=== PATIENT | female | born 1935 | race Caucasian/White ===

== ENCOUNTER 2016-08-10 10:27 | Day surgery (SDC) | payer OTHER, MEDICARE ==
[2016-08-06 16:06] LABS: BILIRUBIN,URINE NEGATIVE (NEGATIVE); CLARITY/URINE CLEAR (CLEAR); COLOR,URINE YELLOW (YELLOW); GLUCOSE,URINE NEGATIVE (NEGATIVE); KETONES,URINE NEGATIVE (NEGATIVE); LEUKOCYTE ESTERASE ,URINE TRACE (NEGATIVE); NITRITE, URINE NEGATIVE (NEGATIVE); PROTEIN URINE NEGATIVE (NEGATIVE); UROBILINOGEN,URINE 0.2 (0.2-1.0)
[2016-08-06 16:12] LABS: ANION GAP 10 (5-15); CALCIUM 9.7 mg/dL (8.4-11.0); CHLORIDE 103 mmol/L (98-107); CREATININE 0.77 mg/dL (0.55-1.30); GLUCOSE 103 mg/dL (70-99); POTASSIUM 3.8 mmol/L (3.5-5.1); SODIUM SERUM 140 mmol/L (136-145); UREA NITROGEN, BLOOD 16 mg/dL (8-21)
[2016-08-06 16:15] LABS: BLOOD, URINE TRACE (NEGATIVE)
[2016-08-06 16:16] LABS: BASOPHILS % (AUTO) 0.2 % (0.0-2.0); EOSINOPHILS # (AUTO) 0.1 K/uL (0.0-0.4); EOSINOPHILS % (AUTO) 1.3 % (0.0-4.0); HEMATOCRIT 42.8 % (36-48); HEMOGLOBIN 14.1 g/dL (12.0-16.0); LYMPHOCYTES # (AUTO) 2.4 K/uL (1.0-5.5); LYMPHOCYTES % (AUTO) 26.6 % (20.5-51.5); MEAN CORPUSCULAR HEMOGLOBIN 30 pg (27-31); MEAN CORPUSCULAR HGB CONC 33 % (32-36); MEAN CORPUSCULAR VOLUME 92 fL (79.0-98.0); MONOCYTES % (AUTO) 10.4 % (1.7-9.3); NEUTROPHILS # (AUTO) 5.7 K/uL (1.8-7.7); NEUTROPHILS % (AUTO) 61.5 % (40.0-70.0); PLATELET COUNT (AUTO) 327 K/uL (130-430); RED BLOOD CELL COUNT(AUTO) 4.66 MIL/uL (4.2-6.2); RED CELL DISTRIBUTION WIDTH 13.6 % (9.0-15.0); WHITE BLOOD COUNT (AUTO) 9.2 K/uL (4.8-10.8)
[2016-08-06 16:17] LABS: BACTERIA,URINE FEW /HPF (None Seen); MUCUS,URINE None Seen /LPF (None Seen); PROTHROMBIN TIME 10.7 SECS (9.5-12.5); RBC,URINE 0-3 /HPF (0-3)
[~2016-08-10] VITALS: Ht 167.6 cm; Wt 94.3 kg
[~2016-08-10 10:27] MED LIST: ASPI-1063 PO; LISI-600 PO; LISI1TAB13 PO; METO-308 PO; PRO40 PO; ROSU10TA PO; TOPXL100 PO; VIS25 PO
[2016-08-10] MEDS ORDERED: SEVOFLURANE 15 MIN GAS INH ONE (11:00)
[2016-08-10] MEDS ORDERED: BUPIVACAINE /EPINEPHRINE/PF 0.25% 30 ML VIAL INJ ONE (11:00)
[2016-08-10] MEDS ORDERED: KETOROLAC TROMETHAMINE 30 MG VIAL IVP ONE (11:00)
[2016-08-10] MEDS ORDERED: MIDAZOLAM HCL 5 MG/5 ML VIAL IVP ONE (11:00)
[2016-08-10] MEDS ORDERED: PROPOFOL 200MG/ 20ML VIAL (DIPRIVAN) IV ONE (11:00)
[2016-08-10] MEDS ORDERED: ONDANSETRON HCL 4 MG/2 ML VIAL IVP ONE (11:00)
[2016-08-10] MEDS ORDERED: METOPROLOL TARTRATE 5 MG/5 ML VIAL IVP ONE (11:00)
[2016-08-10] MEDS ORDERED: LR 1,000 ML IV.SOLN IV ONE (11:00)
[2016-08-10] MEDS ORDERED: fentaNYL CITRATE/PF 100 MCG/2 ML AMP IVP ONE (11:00)
[2016-08-10 11:11] VITALS: O2SAT 98
[2016-08-10] MEDS ORDERED: LR 1,000 ML IV SCH (12:03)
[2016-08-10] MEDS ORDERED: MEPERIDINE HCL/PF 25 MG/ML DISP.SYRIN IVP PRN ×2 (12:15)
[2016-08-10] MEDS ORDERED: ONDANSETRON HCL 4 MG/2 ML VIAL IVP PRN (12:15)
[2016-08-10] MEDS ORDERED: HYDROmorphone 2 MG/ML VIAL IVP PRN ×2 (12:15)
[2016-08-10] MEDS ORDERED: HYDROmorphone 1 MG INJ. 1 MG/ML AMPUL IVP PRN (12:15)
[2016-08-10 13:27] VITALS: BP 136/79; PULSE 63; RESP 16
== END 2016-08-10 14:35 | disposition home or self-care (01) ==
LOC: SDS 10:27 → SMU 10:28 → SDS 14:35
PROVIDERS: ATTEND Orthopaedic Surgery
DX: G56.03 Carpal tunnel syndrome, bilateral upper limbs (principal); I10 Essential (primary) hypertension; M54.5 Low back pain; M48.06 Spinal stenosis, lumbar region; Z90.49 Acquired absence of other specified parts of digestive tract
CPT/HCPCS: 36415; 64721; 71020; 80048; 81000; 85025; 85610; 85730; 93005; J1885; J2250; J2405; J2704; J3010; J3490 ×2; J7120

== ENCOUNTER 2017-01-23 20:21 | Inpatient (IN) | payer OTHER, MEDICARE ==
[~2017-01-23] VITALS: Ht 165.1 cm; Wt 98.0 kg
[2017-01-23 20:21] VITALS: BP_SYST 185
[~2017-01-23 20:21] MED LIST changes: -METO-308 PO
[2017-01-23] MEDS ORDERED: LIP20 PO (20:28)
[2017-01-23] MEDS ORDERED: HYDR50TA3 PO (20:29)
[2017-01-23] MEDS ORDERED: NACL 0.9% 1,000 ML IV ONE (20:45)
[2017-01-23 21:10] LABS: ANION GAP 8 (5-15); CALCIUM 9.2 mg/dL (8.4-11.0); CHLORIDE 97 mmol/L (98-107); CREATININE 0.86 mg/dL (0.55-1.30); GLUCOSE 117 mg/dL (70-99); POTASSIUM 3.8 mmol/L (3.5-5.1); SODIUM SERUM 132 mmol/L (136-145); UREA NITROGEN, BLOOD 13 mg/dL (8-21)
[2017-01-23 21:11] LABS: BASOPHILS % (AUTO) 0.3 % (0.0-2.0); EOSINOPHILS # (AUTO) 0.2 K/uL (0.0-0.4); EOSINOPHILS % (AUTO) 2.3 % (0.0-4.0); HEMATOCRIT 45.7 % (36-48); HEMOGLOBIN 15.1 g/dL (12.0-16.0); LYMPHOCYTES # (AUTO) 3.1 K/uL (1.0-5.5); MEAN CORPUSCULAR HEMOGLOBIN 30 pg (27-31); MEAN CORPUSCULAR HGB CONC 33 % (32-36); MEAN CORPUSCULAR VOLUME 90 fL (79.0-98.0); MONOCYTES # (AUTO) 0.9 K/uL (0.0-1.0); MONOCYTES % (AUTO) 10.1 % (1.7-9.3); NEUTROPHILS # (AUTO) 4.5 K/uL (1.8-7.7); NEUTROPHILS % (AUTO) 51.3 % (40.0-70.0); PLATELET COUNT (AUTO) 304 K/uL (130-430); RED BLOOD CELL COUNT(AUTO) 5.09 MIL/uL (4.2-6.2); WHITE BLOOD COUNT (AUTO) 8.7 K/uL (4.8-10.8)
[2017-01-23 21:14] LABS: ALANINE AMINOTRANSFERASE 32 U/L (12-78); ALBUMIN 3.7 g/dL (3.4-4.8); ASPARTATE AMINOTRANSFERASE 24 U/L (10-37); PROTHROMBIN TIME 10.4 SECS (9.5-12.5); SALICYLATE 1 mg/dL (3-30); TOTAL BILIRUBIN 0.6 mg/dL (0.0-1.0)
[2017-01-23 21:15] LABS: BILIRUBIN,URINE NEGATIVE (NEGATIVE); BLOOD, URINE 1+ (NEGATIVE); CLARITY/URINE CLEAR (CLEAR); COLOR,URINE YELLOW (YELLOW); GLUCOSE,URINE NEGATIVE (NEGATIVE); KETONES,URINE NEGATIVE (NEGATIVE); LEUKOCYTE ESTERASE ,URINE 2+ (NEGATIVE); NITRITE, URINE NEGATIVE (NEGATIVE); PROTEIN URINE TRACE (NEGATIVE); UROBILINOGEN,URINE 0.2 (0.2-1.0)
[2017-01-23 21:16] LABS: ALCOHOL, BLOOD < 3 mg/dL (<10)
[2017-01-23 21:20] LABS: ACETAMINOPHEN < 1 ug/mL (1-30)
[2017-01-23 21:25] LABS: BACTERIA,URINE FEW /HPF (None Seen)
[2017-01-23 21:28] LABS: BARBITURATE, URINE NEGATIVE (NEG <=200); BENZODIAZEPINE, URINE NEGATIVE (NEG <=150); CANNABINOID, URINE NEGATIVE (NEG <=50); COCAINE, URINE NEGATIVE (NEG <=150); METHAMPHETAMINES SCREEN,URINE NEGATIVE (NEG <=500); OPIATE, URINE NEGATIVE (NEG <=100); PHENCYCLIDINE SCREEN,URINE NEGATIVE (NEG <=25); UR TRICYCLIC ANTIDEPRESSANTS NEGATIVE (NEG <=300); URINE AMPHETAMINE NEGATIVE (NEG <=500); URINE METHADONE NEGATIVE (NEG <=200); URINE OXYCODONE SCREEN NEGATIVE (NEG <=100); URINE PROPOXYPHENE SCREEN NEGATIVE (NEG <=300)
[2017-01-23] MEDS ORDERED: LEVOFLOXACIN 500 MG TABLET PO ONE (22:45)
[2017-01-23 23:25] VITALS: BP_SYST 182
[2017-01-24] VITALS (7 sets, daily range): BP systolic 125–187
[2017-01-24] MEDS: cloNIDine HCL 0.1 MG TABLET PO PRN ×2 (01:59→21:14)
[2017-01-24] MEDS: LEVOFLOXACIN 500 MG/D5W 100 ML IV SCH (21:08)
[2017-01-24] MEDS ORDERED: ATORVASTATIN 20 MG TABLET PO PRN (21:45)
[2017-01-24] MEDS ORDERED: LISINOPRIL 20 MG TABLET PO ONE (22:00)
[2017-01-24] MEDS ORDERED: ATORVASTATIN 20 MG TABLET PO ONE (22:30)
[2017-01-24] MEDS: HYDROCHLOROTHIAZIDE 25 MG TABLET (HCTZ) PO ONE ×2 (22:31→22:42)
[2017-01-25] VITALS (7 sets, daily range): BP systolic 132–173
[2017-01-25] MEDS: PANTOPRAZOLE SODIUM 40 MG TAB PO SCH (08:15)
[2017-01-25] MEDS: ASPIRIN 81 MG TABLET(ECOTRIN) PO SCH (08:16)
[2017-01-25] MEDS: LISINOPRIL 20 MG TABLET PO SCH ×2 (08:16→20:57)
[2017-01-25] MEDS: HYDROCHLOROTHIAZIDE 25 MG TABLET (HCTZ) PO SCH (08:16)
[2017-01-25] MEDS: METOPROLOL SUCCINATE 50 MG TAB.SR.24H (TOPROL XL) PO SCH (08:17)
[2017-01-25] MEDS ORDERED: ROSUVASTATIN CALCIUM 5 MG/TAB (CRESTOR) PO SCH (09:00)
[2017-01-25] MEDS ORDERED: HCTZ PO SCH (09:00)
[2017-01-25] MEDS ORDERED: LISINOPRIL PO SCH (09:00)
[2017-01-25 10:06] LABS: THYROID STIMULATING HORMONE 2.52 uIu/mL (0.34-4.82)
[2017-01-25] MEDS: cloNIDine HCL 0.1 MG TABLET PO PRN (12:39)
[2017-01-25] MEDS: LEVOFLOXACIN 500 MG/D5W 100 ML IV SCH (20:36)
[2017-01-25] MEDS ORDERED: ATORVASTATIN 20 MG TABLET PO SCH (21:00)
[2017-01-26 05:44] VITALS: BP_SYST 142
[2017-01-26 08:11] VITALS: BP_SYST 168
[2017-01-26] MEDS: ASPIRIN 81 MG TABLET(ECOTRIN) PO SCH (08:44)
[2017-01-26] MEDS: PANTOPRAZOLE SODIUM 40 MG TAB PO SCH (08:44)
[2017-01-26] MEDS: METOPROLOL SUCCINATE 50 MG TAB.SR.24H (TOPROL XL) PO SCH (08:44)
[2017-01-26] MEDS: LISINOPRIL 20 MG TABLET PO SCH (08:45)
[2017-01-26] MEDS: HYDROCHLOROTHIAZIDE 25 MG TABLET (HCTZ) PO SCH (08:46)
[2017-01-26 10:09] VITALS: BP_SYST 139
== END 2017-01-26 10:30 | disposition home or self-care (01) | DRG 690 ==
LOC: SED 20:21 → STU 22:40 → OBSVTOIN 01-24 12:02 → SMU 01-25 17:12
PROVIDERS: ADMIT Family Medicine; ATTEND Family Medicine
DX: N39.0 Urinary tract infection, site not specified (principal); G45.9 Transient cerebral ischemic attack, unspecified; M54.12 Radiculopathy, cervical region; I10 Essential (primary) hypertension; E78.5 Hyperlipidemia, unspecified; G89.29 Other chronic pain; M48.02 Spinal stenosis, cervical region; E78.00 Pure hypercholesterolemia, unspecified; Z88.0 Allergy status to penicillin; Z88.2 Allergy status to sulfonamides; Z91.018 Allergy to other foods; Z79.899 Other long term (current) drug therapy
CPT/HCPCS: 36415; 70450-TC; 71010; 80053; 80061; 80307; 81000-TC; 83036; 84443-TC; 84484; 85025; 85610-TC; 85730-TC; 87081; 87086; 87186-TC; 93005; 93306; 96360; 96361; 99285; G0378; G0480; G0481; G0482; J1956; J7030; J7040

== ENCOUNTER 2018-04-15 17:30 | Inpatient (IN) | payer OTHER, MEDICARE ==
[2018-04-15] VITALS (7 sets, daily range): BP systolic 131–205
[~2018-04-15] VITALS: Ht 165.1 cm; Wt 108.4 kg
[~2018-04-15 17:30] MED LIST changes: -ASPI-1063 PO; +ASPI-1154 PO; +HYDR50TA3 PO; +LEVO500T20 PO; +LIP20 PO; -LISI1TAB13 PO; +METO-442 PO; +METR500T PO; -PRO40 PO; -ROSU10TA PO
[2018-04-15] MEDS ORDERED: NACL 0.9% 1,000 ML IV ONE (17:32)
--- NOTE | 2018-04-15 17:39 | NUR ---
Pt placed to ER bed 01, to gown, to histology assistant. Pt c/o SOB, coughing, "slurring my words," dry heaving, weakness x 2 days. Pt AAOx3, coherent speech, speaks in full sentences, no slurring of words noted. Pt B/P 205/99, SPO2 90% RA. Mild SOB noted, diminished to bases. Dr. Alva made aware. Pt states that she took her B/P medications late.
--- NOTE | 2018-04-15 17:40 | NUR ---
Pt placed on O2 at 2 LPM/NC, SPO2 increases to 96%.
[2018-04-15] MEDS ORDERED: methylPREDNISolone SOD SUCC/PF 62.5 MG/ML VIAL IVP ONE (17:45)
[2018-04-15] MEDS ORDERED: IPRATROPIUM BROM 0.5 MG/2.5 ML VIAL.NEB (ATROVENT) IH ONE (17:45)
[2018-04-15] MEDS ORDERED: ALBUTEROL SULFATE 0.083% 2.5 MG/3 ML VIAL.NEB IH ONE (17:45)
[2018-04-15] MEDS ORDERED: ASPIRIN 81 MG TAB.CHEW PO ONE ×2 (17:45→18:45)
--- NOTE | 2018-04-15 17:45 | NUR ---
Dr. Alva at bedside.
--- NOTE | 2018-04-15 17:47 | NUR ---
RT at bedside.
--- NOTE | 2018-04-15 17:55 | NUR ---
# 20 gauge angiocath placed to RAC. Use of asceptic technique. Opsite placed over site. Blood return noted. Blood for lab drawn from site. Flushed with 10 cc of normal saline. No evidence of infiltration noted. Patient tolerated well.
--- NOTE | 2018-04-15 18:13 | NUR ---
X-ray at bedside.
--- NOTE | 2018-04-15 18:14 | NUR ---
Pt to CT via stretcher.
[2018-04-15] MEDS ORDERED: cloNIDine HCL 0.1 MG TABLET PO ONE (18:15)
--- NOTE | 2018-04-15 18:20 | NUR ---
Pt returns from CT. Improvement in work of breathing noted, denies c/o pain, no needs verbalized at this time.
[2018-04-15 18:23] LABS: BASOPHILS # (AUTO) 0.1 K/uL (0.0-0.2); BASOPHILS % (AUTO) 0.4 % (0.0-2.0); HEMATOCRIT 39.4 % (36-48); HEMOGLOBIN 13.1 g/dL (12.0-16.0); LYMPHOCYTES # (AUTO) 1.3 K/uL (1.0-5.5); LYMPHOCYTES % (AUTO) 9.4 % (20.5-51.5); MEAN CORPUSCULAR HEMOGLOBIN 31 pg (27-31); MEAN CORPUSCULAR HGB CONC 33 % (32-36); MEAN CORPUSCULAR VOLUME 93 fL (79.0-98.0); MONOCYTES # (AUTO) 1.2 K/uL (0.0-1.0); MONOCYTES % (AUTO) 9.1 % (1.7-9.3); NEUTROPHILS # (AUTO) 10.7 K/uL (1.8-7.7); NEUTROPHILS % (AUTO) 81.1 % (40.0-70.0); PLATELET COUNT (AUTO) 253 K/uL (130-430); RED BLOOD CELL COUNT(AUTO) 4.25 MIL/uL (4.2-6.2); RED CELL DISTRIBUTION WIDTH 12.1 % (9.0-15.0); WHITE BLOOD COUNT (AUTO) 13.3 K/uL (4.8-10.8)
[2018-04-15 18:27] LABS: ANION GAP 12 (5-15); CALCIUM 9.3 mg/dL (8.4-11.0); CHLORIDE 96 mmol/L (98-107); CREATININE 0.92 mg/dL (0.55-1.30); GLUCOSE 139 mg/dL (70-99); POTASSIUM 3.6 mmol/L (3.5-5.1); SODIUM SERUM 132 mmol/L (136-145); UREA NITROGEN, BLOOD 12 mg/dL (8-21)
[2018-04-15 18:29] LABS: INR 1.1 (0.8-1.2); PROTHROMBIN TIME 11.4 SECS (9.5-12.5)
--- NOTE | 2018-04-15 18:30 | NUR ---
Attempted to use bedpan, unable to urinate at this time.
[2018-04-15 18:31] LABS: ALANINE AMINOTRANSFERASE 29 U/L (12-78); ALBUMIN 3.2 g/dL (3.4-4.8); ALCOHOL, BLOOD < 3 mg/dL (<10); AMYLASE 23 U/L (0-100); ASPARTATE AMINOTRANSFERASE 25 U/L (10-37); LIPASE 84 U/L (73-393); TOTAL BILIRUBIN 1.9 mg/dL (0.0-1.0)
[2018-04-15] MEDS ORDERED: CLOPIDOGREL BISULFATE 75 MG TABLET PO ONE (18:45)
--- NOTE | 2018-04-15 18:46 | NUR ---
Unable to urinate in bedpan. Patient assisted to bedside commode instead.
--- NOTE | 2018-04-15 18:59 | NUR ---
Lab at bedside for repeat blood draw.
--- NOTE | 2018-04-15 19:00 | NUR ---
Medication reconciliation completed with information provided by pt. Any prior medication reconciliation on file was reviewed and corrected.
[2018-04-15 19:05] LABS: CKMB RELATIVE INDEX 0.4 (0.0-2.9); CREATINE KINASE MB 1.7 ng/mL (0-3.6)
--- NOTE | 2018-04-15 19:06 | NUR ---
Pt report given to WOODY Martinez.
[2018-04-15 19:09] LABS: BILIRUBIN,URINE NEGATIVE (NEGATIVE); BLOOD, URINE 2+ (NEGATIVE); CLARITY/URINE CLEAR (CLEAR); COLOR,URINE YELLOW (YELLOW); GLUCOSE,URINE NEGATIVE (NEGATIVE); KETONES,URINE 1+ (NEGATIVE); LEUKOCYTE ESTERASE ,URINE TRACE (NEGATIVE); NITRITE, URINE NEGATIVE (NEGATIVE); PROTEIN URINE 2+ (NEGATIVE); UROBILINOGEN,URINE 0.2 (0.2-1.0)
[2018-04-15 19:12] LABS: BACTERIA,URINE MODERATE /HPF (None Seen)
[2018-04-15 19:19] LABS: BARBITURATE, URINE NEGATIVE (NEG <=200); BENZODIAZEPINE, URINE NEGATIVE (NEG <=150); CANNABINOID, URINE NEGATIVE (NEG <=50); COCAINE, URINE NEGATIVE (NEG <=150); METHAMPHETAMINES SCREEN,URINE NEGATIVE (NEG <=500); OPIATE, URINE NEGATIVE (NEG <=100); PHENCYCLIDINE SCREEN,URINE NEGATIVE (NEG <=25); UR TRICYCLIC ANTIDEPRESSANTS NEGATIVE (NEG <=300); URINE AMPHETAMINE NEGATIVE (NEG <=500); URINE METHADONE NEGATIVE (NEG <=200); URINE OXYCODONE SCREEN NEGATIVE (NEG <=100); URINE PROPOXYPHENE SCREEN NEGATIVE (NEG <=300)
[2018-04-15] MEDS ORDERED: ALBUTEROL SULFATE 0.083% 2.5 MG/3 ML VIAL.NEB INH PRN (19:30)
[2018-04-15] MEDS ORDERED: FUROSEMIDE 40 MG/4 ML VIAL IVP ONE (19:30)
[2018-04-15] MEDS ORDERED: ONDANSETRON HCL 4 MG/2 ML VIAL ONE (19:55)
--- NOTE | 2018-04-15 19:55 | NUR ---
Patient will be admitted to care of Dr. Doll. Admitted to ICU unit. Will go to room ICU 4. Belongings list completed. Summary report printed. Report will be given at bedside.
[2018-04-15] MEDS ORDERED: ONDANSETRON HCL 4 MG/2 ML VIAL IVP ONE (20:00)
--- NOTE | 2018-04-15 20:17 | NUR ---
Transfer to ICU via ACLS protocol. Licensed nurse present. IV present no signs or symptoms of infiltration. Report given to WOODY Mallory.
--- NOTE | 2018-04-15 20:17 | NUR ---
RECEIVED IN ICU Patient arrived in ICU at this time via merlene, accompanied by CERTIFIED SURGICAL TECHNICIAN Michelle and Norman. Report received from Michelle. Patient awake, alert and oriented and able to verbalize needs. Patient on 2L O2 via NC with 96% O2 saturation. Patient BP at 163/64, patient just recently been given clonidine in ER. No sign of acute distress noted at this time. IV site on Right AC 20g, patent and no sign of infiltration observed. Patent educated on the use of call light. Call light placed within reach. Will continue to monitor.
--- NOTE | 2018-04-15 20:20 | NUR ---
Note yesika in EDM - 04/15/18 at 2109 by [email or web address] Patient will be admitted to care of Dr. Doll. Admitted to ICU unit. Will go to room ICU 4. Belongings list completed. Summary report printed. Report will be given at bedside.
--- NOTE | 2018-04-15 20:40 | NUR ---
Note temoone in EDM - 04/15/18 at 2105 by [email or web address] Transfer to ICU via ACLS protocol. Licensed nurse present. IV present no signs or symptoms of infiltration. Report given to WOODY Mallory.
--- NOTE | 2018-04-15 20:45 | NUR ---
cardiology consultation called for , spoke with milling machine operator gear 1 at exchange.
--- NOTE | 2018-04-15 20:47 | NUR ---
CALLED BACK AND INFORMED HIM OF PTS STATUS, HE SAID HE WILL SEE THE PT LATER.
[2018-04-15] MEDS: NACL 0.9% 1,000 ML IV SCH (20:56)
--- NOTE | 2018-04-15 22:30 | NUR ---
CONSULT FOR CALLED, SPOKE WITH [employer].
--- NOTE | 2018-04-15 22:35 | NUR ---
Paged Dr. Doll at this time for orders. Awaiting call back.
--- NOTE | 2018-04-15 23:00 | NUR ---
Dr. Doll called back. Received orders. Home meds continued as ordered.
[2018-04-16] VITALS (25 sets, daily range): BP systolic 107–180
--- NOTE | 2018-04-16 01:16 | NUR ---
RN ROUNDS ASSISTED PT TO BEDPAN AT THIS TIME. PT TOLERATED WELL. LINENS CHANGED THIS TIME. NO SIGNS OF ACUTE DISTRESS OR DISCOMFORT NOTED. WILL CONTINUE TO MONITOR.
--- NOTE | 2018-04-16 03:36 | NUR ---
RN ROUNDS PT IN BED W/ EYES OPEN WATCHING TV. NO SIGNS OF ACUTE DISTRESS OR DISCOMFORT NOTED. PT REPOSITIONED HIGHER INTO BED AT THIS TIME. PT TOLERATED WELL. WILL CONTINUE TO MONITOR.
--- NOTE | 2018-04-16 05:15 | NUR ---
RN ROUNDS PT IN BED W/ EYES CLOSED RESTING COMFORTABLY. NO SIGNS OF ACUTE DISTRESS OR DISCOMFORT NOTED. BED LOCKED AND IN LOWEST POSITION, CALL LIGHT W/IN REACH, WILL CONTINUE TO MONITOR.
--- NOTE | 2018-04-16 07:21 | NUR ---
ENDORSEMENT PT CARE ENDORSED TO DENISE MCKAY. REPORT GIVEN USING SBAR FORMAT. PT IN BED A&O X4 . NO SIGNS OF ACUTE DISTRESS OR DISCOMFORT NOTED.
--- NOTE | 2018-04-16 07:23 | NUR ---
AM ROUNDS: Report received from NOC shift RN. Patient is resting in bed. No signs or symptoms of distress noted.
[2018-04-16] MEDS: cefTRIAXone 1 GM IVPB PREMIX 50 ML IV SCH (08:20)
[2018-04-16] MEDS: FLUTICASONE/VILANTEROL 1 EACH BLST.W.DEV INH SCH (08:20)
[2018-04-16] MEDS: FUROSEMIDE 40 MG/4 ML VIAL IVP SCH (08:22)
[2018-04-16] MEDS: cloNIDine HCL 0.1 MG TABLET PO SCH ×2 (08:25→20:51)
[2018-04-16] MEDS: LOSARTAN POTASSIUM 50 MG TABLET (COZAAR) PO SCH ×2 (08:26→20:50)
[2018-04-16] MEDS: ATORVASTATIN 20 MG TABLET PO SCH (08:26)
[2018-04-16] MEDS: HYDROCHLOROTHIAZIDE 25 MG TABLET (HCTZ) PO SCH (08:27)
[2018-04-16] MEDS: ASPIRIN 81 MG TABLET(ECOTRIN) PO SCH (08:28)
[2018-04-16] MEDS: METOPROLOL SUCCINATE 50 MG TAB.SR.24H (TOPROL XL) PO SCH (08:29)
--- NOTE | 2018-04-16 09:13 | NUR ---
MD ROUNDS: Dr. Doll in to see patient.
--- NOTE | 2018-04-16 09:13 | NUR ---
FOOD COUNTER WORKER ROUNDS: FOOD COUNTER WORKER Addison in to see patient for Dr. Keith.
--- NOTE | 2018-04-16 09:28 | NUR ---
MD ROUNDS: Dr. Ruff in to see patient.
[2018-04-16 10:12] LABS: BASOPHILS # (AUTO) 0.1 K/uL (0.0-0.2); BASOPHILS % (AUTO) 0.9 % (0.0-2.0); HEMATOCRIT 37.9 % (36-48); HEMOGLOBIN 12.8 g/dL (12.0-16.0); LYMPHOCYTES # (AUTO) 0.8 K/uL (1.0-5.5); LYMPHOCYTES % (AUTO) 7.4 % (20.5-51.5); MEAN CORPUSCULAR HEMOGLOBIN 31 pg (27-31); MEAN CORPUSCULAR HGB CONC 34 % (32-36); MEAN CORPUSCULAR VOLUME 92 fL (79.0-98.0); MONOCYTES # (AUTO) 0.6 K/uL (0.0-1.0); MONOCYTES % (AUTO) 5.4 % (1.7-9.3); NEUTROPHILS # (AUTO) 9.2 K/uL (1.8-7.7); NEUTROPHILS % (AUTO) 86.3 % (40.0-70.0); PLATELET COUNT (AUTO) 245 K/uL (130-430); RED BLOOD CELL COUNT(AUTO) 4.11 MIL/uL (4.2-6.2); RED CELL DISTRIBUTION WIDTH 12.5 % (9.0-15.0); WHITE BLOOD COUNT (AUTO) 10.7 K/uL (4.8-10.8)
--- NOTE | 2018-04-16 11:52 | NUR ---
ROUNDS: Dr. Keith in to see patient. Addendum: 04/16/18 at 1225 by Uziel Maya RN made aware of elevated BP after medication. He stated he would put in orders.
--- NOTE | 2018-04-16 13:30 | NUR ---
Neuro consult Neuro consult called to Dr. Ambriz's exchange.
[2018-04-16] MEDS: hydrALAZINE HCL 25 MG TABLET PO SCH ×2 (15:13→22:33)
[2018-04-16] MEDS: NACL 0.9% 1,000 ML IV SCH (15:39)
--- NOTE | 2018-04-16 16:35 | NUR ---
Code status update Dr. Doll called and code status discussed with him. He would like to talk to the pt, and daughters when he rounds tomorrow.
--- NOTE | 2018-04-16 19:30 | NUR ---
PM Assessment Pt in bed. Alert and orientated x4, able to verbalize needs. Pt Resp clear and unlabored. On NC @2L. SPO2 above 96%. SB/ SR noted on monitor. Skin intact. Pt able to turn self. Bedpan used when needed. Bed locked in lowest position, call light in reach, safety precautions in place. Will continue to monitor.
[2018-04-16] MEDS: ENOXAPARIN SODIUM 40 MG/0.4 ML SYRINGE SUBCUT SCH (20:52)
[2018-04-17] VITALS (18 sets, daily range): BP systolic 115–180
--- NOTE | 2018-04-17 03:30 | NUR ---
Pt Round Pt in bed asleep. No signs or symptoms of discomfort or distress noted. SPO2 maintained above 96%Call light remains in reach. Will continue to monitor.
[2018-04-17] MEDS: hydrALAZINE HCL 25 MG TABLET PO SCH ×3 (06:09→21:05)
--- NOTE | 2018-04-17 07:15 | NUR ---
Endorsement Report given to oncoming nurse at bedside via SBAR approach.
--- NOTE | 2018-04-17 07:20 | NUR ---
AM RN ROUNDS PT IS AA/O X 4, SPEAKS KAZAKH AND IS COOPERATIVE. O2 THERAPY AT 2L VIA NASAL CANULA, NO SOB, LUNG SOUNDS CLEAR BILATERALLY BUT SLIGHTLY DIMINISHED IN LOWER LOBES. RAC 20G ANGIOCATH PATENT, DRESSING DRY AND INTACT. BED IN LOWEST POSITION AND CALL LIGHT IS WITHIN REACH.
--- NOTE | 2018-04-17 07:58 | NUR ---
Nutrition Update Lito Scale 17 noted. Pt admitted for Acute Coronary Syndrome, Pneumonia, Acute CHF Diet: regular diet BMI: 39.8 kg/m2 RD to follow per nutrition care standards.
[2018-04-17] MEDS: FUROSEMIDE 40 MG/4 ML VIAL IVP SCH ×2 (09:00→09:01)
[2018-04-17] MEDS: LOSARTAN POTASSIUM 50 MG TABLET (COZAAR) PO SCH ×2 (09:02→21:04)
[2018-04-17] MEDS: METOPROLOL SUCCINATE 50 MG TAB.SR.24H (TOPROL XL) PO SCH (09:02)
[2018-04-17] MEDS: ATORVASTATIN 20 MG TABLET PO SCH (09:03)
[2018-04-17] MEDS: ASPIRIN 81 MG TABLET(ECOTRIN) PO SCH (09:03)
[2018-04-17] MEDS: cloNIDine HCL 0.1 MG TABLET PO SCH ×2 (09:03→21:04)
[2018-04-17] MEDS: HYDROCHLOROTHIAZIDE 25 MG TABLET (HCTZ) PO SCH (09:04)
[2018-04-17] MEDS: cefTRIAXone 1 GM IVPB PREMIX 50 ML IV SCH (09:04)
[2018-04-17] MEDS: FLUTICASONE/VILANTEROL 1 EACH BLST.W.DEV INH SCH (09:05)
[2018-04-17 10:22] LABS: ANION GAP 6 (5-15); CHLORIDE 102 mmol/L (98-107); CREATININE 1.04 mg/dL (0.55-1.30); GLUCOSE 124 mg/dL (70-99); POTASSIUM 3.4 mmol/L (3.5-5.1); SODIUM SERUM 133 mmol/L (136-145); UREA NITROGEN, BLOOD 25 mg/dL (8-21)
[2018-04-17 10:38] LABS: ALANINE AMINOTRANSFERASE 27 U/L (12-78); ALBUMIN 2.6 g/dL (3.4-4.8); ASPARTATE AMINOTRANSFERASE 23 U/L (10-37); TOTAL BILIRUBIN 0.6 mg/dL (0.0-1.0)
[2018-04-17] MEDS ORDERED: POTASSIUM CHLORIDE 20 MEQ TAB.PRT.SR PO ONE (11:30)
[2018-04-17] MEDS ORDERED: FUROSEMIDE 40 MG/4 ML VIAL IVP ONE (11:30)
--- NOTE | 2018-04-17 11:31 | NUR ---
Downgrade to Telemetry per Dr. Oropeza Continuing care in ICU until a Tele bed becomes available.
[2018-04-17] MEDS: KCL 20 mEq in NS 1000 mL 1,000 ML IV SCH (13:54)
[2018-04-17] MEDS: IPRATROPIUM BROM 0.5 MG/2.5 ML VIAL.NEB (ATROVENT) INH SCH ×2 (15:08→21:00)
[2018-04-17] MEDS: ALBUTEROL SULFATE 0.083% 2.5 MG/3 ML VIAL.NEB INH SCH ×2 (15:08→21:00)
--- NOTE | 2018-04-17 16:00 | NUR ---
RN NOTE PT SITTING UP IN BED TALKING WITH FRIENDS AT BEDSIDE, NO COMPLAINT OF PAIN OR SOB. BED IN LOWEST POSITION AND CALL LIGHT WITHIN REACH.
--- NOTE | 2018-04-17 18:00 | NUR ---
ENDORSEMENT REPORT ENDORSED TO WARP HANDWOODY LUI PT TRANSPORTED TO BED 114-B ON RIM TURNING MACHINE OPERATOR AND O2 THERAPY VIA ACLS GUIDELINES
--- NOTE | 2018-04-17 18:10 | NUR ---
Initial Note patient oriented to room, connected to O2, no SOB at this time, breathing unlabored, symmetrical chest expansion, she was assisted with meal tray, family at bedside, no complaints of pain, safety precautions remain in place, educated patient on use of call light for assistance, verbalized understanding, call light and bedside table left within reach, will continue to monitor patient
--- NOTE | 2018-04-17 18:55 | NUR ---
Closing Note patient resting in bed, awake and alert, HOB elevated, no complaints of pain, family still at bedside, IV fluids infusing, site patent, safety precautions remain in place, call light and bedside table left within reach, will endorse to night shift supervisor nurse
--- NOTE | 2018-04-17 19:25 | NUR ---
OPENING NOTE Received report from Flor. Patient resting in bed awake, alert, oriented x3. Breathing unlabored and even on 2L oxygen via NC. No signs of distress, no needs at this time. Fall and safety precautions in place. Bed in lowest position, brake on, alarm on, call light within reach. IVF infusing as ordered. Family at the bedside. Will continue to monitor.
[2018-04-17] MEDS: POTASSIUM CHLORIDE 8 MEQ TABLET.SA PO SCH (21:05)
[2018-04-17] MEDS: ENOXAPARIN SODIUM 40 MG/0.4 ML SYRINGE SUBCUT SCH (21:06)
--- NOTE | 2018-04-17 23:25 | NUR ---
Patient resting in bed with eyes closed. Breathing unlabored and even on 2L oxygen via NC. No signs of distress, no needs at this time. Fall and safety precautions in place. Bed in lowest position, brake on, alarm on, call light within reach. IVF infusing as ordered. Will continue to monitor.
[2018-04-18] VITALS (7 sets, daily range): BP systolic 140–167
[2018-04-18] MEDS: KCL 20 mEq in NS 1000 mL 1,000 ML IV SCH ×2 (01:48→07:30)
--- NOTE | 2018-04-18 01:49 | NUR ---
New IVF hung
--- NOTE | 2018-04-18 05:45 | NUR ---
ASSISTED PT TO THE BSC. BM X1
[2018-04-18] MEDS: hydrALAZINE HCL 25 MG TABLET PO SCH ×3 (06:01→21:22)
[2018-04-18 07:19] LABS: BASOPHILS % (AUTO) 0.3 % (0.0-2.0); EOSINOPHILS # (AUTO) 0.1 K/uL (0.0-0.4); EOSINOPHILS % (AUTO) 0.8 % (0.0-4.0); HEMATOCRIT 36.9 % (36-48); HEMOGLOBIN 11.8 g/dL (12.0-16.0); LYMPHOCYTES # (AUTO) 1.5 K/uL (1.0-5.5); LYMPHOCYTES % (AUTO) 15.1 % (20.5-51.5); MEAN CORPUSCULAR HEMOGLOBIN 30 pg (27-31); MEAN CORPUSCULAR HGB CONC 32 % (32-36); MEAN CORPUSCULAR VOLUME 94 fL (79.0-98.0); MONOCYTES # (AUTO) 1.5 K/uL (0.0-1.0); MONOCYTES % (AUTO) 14.9 % (1.7-9.3); NEUTROPHILS # (AUTO) 6.9 K/uL (1.8-7.7); NEUTROPHILS % (AUTO) 68.9 % (40.0-70.0); PLATELET COUNT (AUTO) 303 K/uL (130-430); RED BLOOD CELL COUNT(AUTO) 3.93 MIL/uL (4.2-6.2); RED CELL DISTRIBUTION WIDTH 12.8 % (9.0-15.0)
--- NOTE | 2018-04-18 07:20 | NUR ---
Opening Note Patient resting in bed, eyes closed, HOB elevated, no signs of distress, symmetrical chest expansion, IV site remains in tact, safety precautions in place, call light and bedside table left within reach, will continue to monitor patient
--- NOTE | 2018-04-18 07:30 | NUR ---
CLOSING NOTE Gave report to Flor. Patient resting in bed awake, alert, oriented x3. Breathing unlabored and even on 2L oxygen via NC. No signs of distress, no needs at this time. Fall and safety precautions in place. Bed in lowest position, brake on, alarm on, call light within reach. IVF infusing as ordered. Endorsed care to day shift nurse.
[2018-04-18 07:35] LABS: ANION GAP 9 (5-15); CALCIUM 8.8 mg/dL (8.4-11.0); CHLORIDE 102 mmol/L (98-107); CREATININE 0.93 mg/dL (0.55-1.30); GLUCOSE 94 mg/dL (70-99); POTASSIUM 3.5 mmol/L (3.5-5.1); SODIUM SERUM 137 mmol/L (136-145); UREA NITROGEN, BLOOD 18 mg/dL (8-21)
[2018-04-18] MEDS: IPRATROPIUM BROM 0.5 MG/2.5 ML VIAL.NEB (ATROVENT) INH SCH ×3 (08:29→20:22)
[2018-04-18] MEDS: ALBUTEROL SULFATE 0.083% 2.5 MG/3 ML VIAL.NEB INH SCH ×3 (08:29→20:21)
[2018-04-18] MEDS: HYDROCHLOROTHIAZIDE 25 MG TABLET (HCTZ) PO SCH (08:55)
[2018-04-18] MEDS: ATORVASTATIN 20 MG TABLET PO SCH (08:57)
[2018-04-18] MEDS: METOPROLOL SUCCINATE 50 MG TAB.SR.24H (TOPROL XL) PO SCH (08:57)
[2018-04-18] MEDS: LOSARTAN POTASSIUM 50 MG TABLET (COZAAR) PO SCH ×2 (08:58→21:23)
[2018-04-18] MEDS: POTASSIUM CHLORIDE 8 MEQ TABLET.SA PO SCH ×2 (08:58→21:23)
[2018-04-18] MEDS: FLUTICASONE/VILANTEROL 1 EACH BLST.W.DEV INH SCH (08:58)
[2018-04-18] MEDS: cloNIDine HCL 0.1 MG TABLET PO SCH ×2 (08:58→21:23)
[2018-04-18] MEDS: ASPIRIN 81 MG TABLET(ECOTRIN) PO SCH (08:58)
[2018-04-18] MEDS: cefTRIAXone 1 GM IVPB PREMIX 50 ML IV SCH (08:59)
[2018-04-18] MEDS: FUROSEMIDE 40 MG/4 ML VIAL IVP SCH (09:00)
--- NOTE | 2018-04-18 09:10 | NUR ---
Medication Administration patient resting in bed, she was educated regarding meds, verbalized understanding, tolerated well by mouth, IV antibiotics hung, site patent, she is eating breakfast, no other needs at this time, educated patient on use of call light for assistance, verbalized understanding, call light and bedside table in reach, will continue to monitor
--- NOTE | 2018-04-18 11:08 | NUR ---
Assisted to Caitlin/Dr. Carroll Made Rounds patient was assisted to caitlin and sheets changed, Dr. Carroll rounded at this time, informed her that patient's O2 on room air is 93%, MD stated to maintain O2 at 92%, stated she will also place order for dx tests, will follow-up with orders
--- NOTE | 2018-04-18 11:15 | NUR ---
Incentive Spirometer Teaching educated patient on use of IS, verbalized understanding, she was able to reach 1250 mL, educated her on frequency of use, verbalized understanding, placed device within reach, safety precautions remain in place, call light and bedside table within reach, will continue to monitor
--- NOTE | 2018-04-18 12:50 | NUR ---
Patient's Family Visited at this time, patient resting in bed with eyes closed, no signs of distress, updated them with plan of care, verbalized understanding, will continue to monitor patient
[2018-04-18] MEDS ORDERED: IOHEXOL 350 mgI/mL, 150 ML INFUS..BTL IV ONE (13:49)
--- NOTE | 2018-04-18 14:05 | NUR ---
Dr. Doll Rounds at this time, stated to continue monitoring patient, asked if he wanted PT order and stated would place order. Will follow through with orders
--- NOTE | 2018-04-18 14:47 | NUR ---
Patient Voided, Was Cleaned in Bed she was able to ambulate to BSC and voided more. She was cleansed, also cleansed under breast area and applied new integredry. O2 saturation remains 93% on room air, no SOB or complaints of pain. Safety precautions remain in place, call light and bedside table within reach, will continue to monitor
--- NOTE | 2018-04-18 14:59 | NUR ---
Patient Off Unit at this time for CT of chest
--- NOTE | 2018-04-18 15:45 | NUR ---
Patient back on Unit/Diaper Education patient used diapers brought in from home to transport to MRI because she has occasional incontinence, asked if we could remove the diaper since she is back on the unit, patient stated she wants to keep it on for now, educated her on skin break down and potential for infection if diaper is kept on, verbalized understanding but still wants diaper on, will assess skin condition frequently
--- NOTE | 2018-04-18 17:58 | NUR ---
Family at bedside at this time, patient sitting on chair at bedside and eating dinner, no complaints of pain, breathing unlabored on room air, IV site saline locked, safety precautions remain in place, bedside table and call light left within reach, will continue to monitor
--- NOTE | 2018-04-18 19:05 | NUR ---
Closing Note isa care provided, patient was able to ambulate to bedside commode, requested diaper, re-educated her on risks of skin breakdown from using diapers, verbalized understanding, states she feels more comfortable using diapers, no signs of skin breakdown at this time, she was repositioned in bed, safety precautions remain in place, bedside table and call light left within reach, will endorse to machinist 2nd shift nurse
--- NOTE | 2018-04-18 19:20 | NUR ---
OPENING NOTE Received report from Flor. Patient resting in bed awake, alert, oriented x4. Breathing unlabored and even on room air. No signs of distress, no needs at this time. Fall and safety precautions in place. Bed in lowest position, brake on, alarm on, call light within reach. IV access saline locked. Will continue to monitor.
[2018-04-18] MEDS: ENOXAPARIN SODIUM 40 MG/0.4 ML SYRINGE SUBCUT SCH (21:24)
--- NOTE | 2018-04-18 23:41 | NUR ---
Patient resting in bed with eyes closed. Breathing unlabored and even on room air. No signs of distress, no needs at this time. Fall and safety precautions in place. Bed in lowest position, brake on, alarm on, call light within reach. Will continue to monitor.
[2018-04-19 00:29] VITALS: BP_SYST 151
--- NOTE | 2018-04-19 05:14 | NUR ---
Patient resting in bed awake, alert, oriented x4. Breathing unlabored and even on room air. No signs of distress, no needs at this time. Fall and safety precautions in place. Bed in lowest position, brake on, alarm on, call light within reach. Will continue to monitor.
[2018-04-19] MEDS: hydrALAZINE HCL 25 MG TABLET PO SCH ×3 (05:58→21:38)
[2018-04-19] MEDS: ALBUTEROL SULFATE 0.083% 2.5 MG/3 ML VIAL.NEB INH SCH ×3 (07:00→21:04)
[2018-04-19] MEDS: IPRATROPIUM BROM 0.5 MG/2.5 ML VIAL.NEB (ATROVENT) INH SCH ×3 (07:00→21:04)
[2018-04-19 07:41] LABS: ANION GAP 9 (5-15); CALCIUM 8.9 mg/dL (8.4-11.0); CHLORIDE 100 mmol/L (98-107); CREATININE 0.92 mg/dL (0.55-1.30); GLUCOSE 166 mg/dL (70-99); POTASSIUM 3.3 mmol/L (3.5-5.1); SODIUM SERUM 136 mmol/L (136-145); UREA NITROGEN, BLOOD 17 mg/dL (8-21)
[2018-04-19 07:50] VITALS: BP_SYST 183
--- NOTE | 2018-04-19 07:50 | NUR ---
OPENING NOTES, RECEIVED PT IN BED, PT IS AAOX4, DENIES PAIN, NO SOD, NO RESP DISTRESS. NO DIZZINESS, NO N/V. BP HIGH AT 183/75. PT IS AFEBRILE. SL ON R. AC , INTACT AND PATENT. NO S/S OF INFILTRATION. NO EDEMA NOTED. CALL LIGHT IN REACH. BED IN LO POSITION. PT ENCOURAGED TO CALL FOR PAIN MED AND ANY CONCERNS. WILL CONT TO MONITOR.
[2018-04-19] MEDS: FLUTICASONE/VILANTEROL 1 EACH BLST.W.DEV INH SCH (08:39)
[2018-04-19] MEDS: ATORVASTATIN 20 MG TABLET PO SCH (08:39)
[2018-04-19] MEDS: ASPIRIN 81 MG TABLET(ECOTRIN) PO SCH (08:39)
[2018-04-19] MEDS: METOPROLOL SUCCINATE 50 MG TAB.SR.24H (TOPROL XL) PO SCH (08:39)
[2018-04-19] MEDS: FUROSEMIDE 40 MG TABLET PO SCH (08:40)
[2018-04-19] MEDS: cloNIDine HCL 0.1 MG TABLET PO SCH ×2 (08:40→21:37)
[2018-04-19] MEDS: cefTRIAXone 1 GM IVPB PREMIX 50 ML IV SCH (08:40)
[2018-04-19] MEDS: LOSARTAN POTASSIUM 50 MG TABLET (COZAAR) PO SCH ×2 (08:40→21:37)
[2018-04-19] MEDS: POTASSIUM CHLORIDE 8 MEQ TABLET.SA PO SCH ×2 (08:41→21:39)
[2018-04-19] MEDS: HYDROCHLOROTHIAZIDE 25 MG TABLET (HCTZ) PO SCH (08:44)
--- NOTE | 2018-04-19 10:00 | NUR ---
PT IN BED, EYES CLOSE PT APPEARS SLEEPING. NO S/S OF PAIN, NO SOB. NO RESP DISTRESS. CHEST RISE EVEN AND UNLABORED. CALL LIGHT IN REACH. BED IN LOW POSITION. BEL ALARM ON. WILL CONT TO MONITOR.
[2018-04-19] MEDS ORDERED: POTASSIUM CHLORIDE 20 MEQ TAB.PRT.SR PO ONE (10:15)
[2018-04-19] MEDS ORDERED: AZITHROMYCIN 250 MG TABLET PO ONE (10:15)
[2018-04-19 12:36] VITALS: BP_SYST 155
--- NOTE | 2018-04-19 12:56 | NUR ---
PT IN BED, NO C/O PAIN, NO SOB, NO RESP DISTRESS. CALL LIGHT IN REACH. BED IN LOW POSITION. WILL CONT TO MONITOR.
--- NOTE | 2018-04-19 13:57 | NUR ---
CALLED DR PARNELL'S OFFC AND FOLLOWED UP CONSULT WITH MD. DR FISH ORDERED EARLIER TO CALL DR PARNELL TO FOLLOW CONSULT TO CHECK PT AND GET CLEARANCE IF PT IS OKAY TO GO HOME.
--- NOTE | 2018-04-19 14:39 | NUR ---
Patient was seen for evaluation. She required minimal assistance in transfers and gait. She may transfer to bedside commode with nursing. During PT BP was high, but came down slightly before treatment.
--- NOTE | 2018-04-19 15:33 | NUR ---
PT IN BED, DENIES PAIN, NO SOB, NO RESP DISTRESS. PM MEDS GIVEN. CALL LIGHT IN REACH, BED IN LOW POSITION. WILL CONT TO MONITOR.
[2018-04-19 16:24] VITALS: BP_SYST 127
--- NOTE | 2018-04-19 16:25 | NUR ---
Case mgt: Pt lives with -Has cane, FWW, wheelchair at home--has dtr Yanira that helps with chores/driving-her kids and caregiver take turns driving and assisting her and her . F/U for dc planning as needed--PHILLIP RN
--- NOTE | 2018-04-19 18:54 | NUR ---
CLOSING NOTES, PT HAS BEEN STABLE, NO C/O CHEST PAIN SINCE ARRIVAL ON THE FLOOR. NO SOB, NO RESP DISTRESS. PT AMBULATED WITH P.T. PER P.T. PT NEEDS ASSIST TO BATHROOM WITH FRONT WHEEL WALKER. CONSULT WITH SOHEILA FOLLOWED UP BUT DID NOT CALL BACK. SAFETY PRECAUTION KEPT IN PLACE. CALL LIGHT AT BEDSIDE, IN REACH. ENCOURAGED TO CALL FOR ASSIST AND PAIN MEDS AND ANY CONCERNS. WILL ENDORSE TO NIGHT RN.
--- NOTE | 2018-04-19 19:10 | NUR ---
Initial Notes Received patient in resting with eyes close in bed . Pt is awake alert oriented x4. No c/o pain and no s/s of any distress noted. IV noted to R a/c g20 no infiltrate and with good blood return. BUE extremities are strong, BLE has some mild weakness needs assistance to bed side commode. Discuss plan of care with patient and verbalize understanding. Call light in reach, will cont to monitor.
[2018-04-19 19:18] VITALS: BP_SYST 112
--- NOTE | 2018-04-19 21:10 | NUR ---
Rounds Patient is resting comfortably at this time. No s/s of any distress noted. Call light in reach, will cont to monitor.
[2018-04-19] MEDS: ENOXAPARIN SODIUM 40 MG/0.4 ML SYRINGE SUBCUT SCH (21:39)
--- NOTE | 2018-04-19 23:10 | NUR ---
Rounds Patient is resting comfortably with eyes close at this time. No c/o pain and no s/s of any distress noted. Call light in reach, will cont to monitor.
[2018-04-19 23:47] VITALS: BP_SYST 116
--- NOTE | 2018-04-20 01:10 | NUR ---
Rounds Patient is resting comfortably at this time. No c/o pain and no s/s of any distress noted. Call light in reach, will cont to monitor.
[2018-04-20] MEDS: hydrALAZINE HCL 25 MG TABLET PO SCH (05:25)
--- NOTE | 2018-04-20 07:01 | NUR ---
End of shift notes Patient is resting comfortably at this time. No c/o pain and no distress noted. All needs met and anticipated by noc nurses. Call light in reach, endorsed to incoming nurse.
[2018-04-20] MEDS: ALBUTEROL SULFATE 0.083% 2.5 MG/3 ML VIAL.NEB INH SCH ×2 (07:29→15:37)
[2018-04-20] MEDS: IPRATROPIUM BROM 0.5 MG/2.5 ML VIAL.NEB (ATROVENT) INH SCH ×2 (07:29→15:37)
[2018-04-20 07:30] VITALS: BP_SYST 155
--- NOTE | 2018-04-20 07:47 | NUR ---
Am notes Pt in bed awake ,alert and oriented. denies any pain or discomfort. having breathing treatment at this time. no acute distress noted. update plan of care. will continue to monitor.
[2018-04-20] MEDS: ATORVASTATIN 20 MG TABLET PO SCH (08:38)
[2018-04-20] MEDS: POTASSIUM CHLORIDE 8 MEQ TABLET.SA PO SCH (08:38)
[2018-04-20] MEDS: HYDROCHLOROTHIAZIDE 25 MG TABLET (HCTZ) PO SCH (08:38)
[2018-04-20] MEDS: LOSARTAN POTASSIUM 50 MG TABLET (COZAAR) PO SCH (08:38)
[2018-04-20] MEDS: ASPIRIN 81 MG TABLET(ECOTRIN) PO SCH (08:39)
[2018-04-20] MEDS: FUROSEMIDE 40 MG TABLET PO SCH (08:39)
[2018-04-20] MEDS: METOPROLOL SUCCINATE 50 MG TAB.SR.24H (TOPROL XL) PO SCH (08:39)
[2018-04-20] MEDS: cloNIDine HCL 0.1 MG TABLET PO SCH (08:40)
[2018-04-20] MEDS: cefTRIAXone 1 GM IVPB PREMIX 50 ML IV SCH (08:42)
[2018-04-20] MEDS: FLUTICASONE/VILANTEROL 1 EACH BLST.W.DEV INH SCH (08:44)
[2018-04-20] MEDS ORDERED: AZITHROMYCIN 250 MG TABLET PO SCH (09:00)
--- NOTE | 2018-04-20 10:10 | NUR ---
Notes Resting in bed, no acute distress noted. denies any pain or discomfort. call light within reach. will monitor.
[2018-04-20 11:35] VITALS: BP_SYST 154
--- NOTE | 2018-04-20 12:00 | NUR ---
Physical Therapy Patient is walking with therapy at this time. denies any pain or discomfort at this time.
--- NOTE | 2018-04-20 14:30 | NUR ---
Notes/Md rounds Seen by Dr. Sharmila MD discharge patient with prescription and continue home medications. family at bedside and aware.
[2018-04-20] MEDS ORDERED: LEVO250T2 PO (14:52)
[2018-04-20 14:57] VITALS: BP_SYST 145
--- NOTE | 2018-04-20 15:20 | NUR ---
appointment called to Dr. stanford office. Appointment is on , at 2;15 PM.
--- NOTE | 2018-04-20 15:24 | NUR ---
CHF PROTOCOL / APPOINTMENT MADE WITHIN 7 DAYS APPOINTMENT MADE TO SEE DR SALEEM ON APR 26, 2018 AT 2:15PM , PATIENT MADE AWARE.
--- NOTE | 2018-04-20 15:45 | NUR ---
D/C D/C PT HOME VIA WHEELCHAIR, ACCOMPANIED BY FAMILY. DENIES ANY PAIN OR SHORTNESS OF BREATH. D/C INSTRUCTION, PRESCRIPTION AND APPOINTMENTS SCHEDULED DISCUSSED WITH PATIENT AND FAMILY. PT AND FAMILY VERBALIZE UNDERSTANDING. IVL AND ARM BAND REMOVED. NO DISTRESS NOTED. DISCHARGE.
--- NOTE | 2018-04-26 16:38 | NUR ---
Discharge Follow Up Phone Call WOOD GRINDER OPERATOR phoned patient, , and left a voicemail message on 04/25/18. Patient's , Brayden, called back today. Patient is "making progress" and completed her antibiotic course. They went to attend the follow up appointment made with Dr Keith today but were told that no appointment had been made, nor was Dr Keith in the office on Wednesdays. He made a new appointment and the problem was emailed to Sindhu MCKAY. A follow up appointment was scheduled with Dr Carroll for 04/27/18. They had no other questions or concerns.
== END 2018-04-20 15:50 | disposition home or self-care (01) | DRG 193 ==
LOC: SED 17:30 → SIC 19:30 → SMU 04-17 18:10 → STU 04-17 21:32
PROVIDERS: ADMIT Family Medicine; ATTEND Family Medicine
DX: J18.1 Lobar pneumonia, unspecified organism (principal); I50.31 Acute diastolic (congestive) heart failure; I24.9 Acute ischemic heart disease, unspecified; J44.1 Chronic obstructive pulmonary disease with (acute) exacerbation; R65.10 Systemic inflammatory response syndrome (SIRS) of non-infectious origin without acute organ dysfunction; I11.0 Hypertensive heart disease with heart failure; E78.00 Pure hypercholesterolemia, unspecified; M48.00 Spinal stenosis, site unspecified; R09.02 Hypoxemia; E78.5 Hyperlipidemia, unspecified; R73.9 Hyperglycemia, unspecified; E66.9 Obesity, unspecified; I27.20 Pulmonary hypertension, unspecified; Z86.73 Personal history of transient ischemic attack (TIA), and cerebral infarction without residual deficits; Z87.891 Personal history of nicotine dependence; Z88.0 Allergy status to penicillin; Z88.2 Allergy status to sulfonamides; Z88.8 Allergy status to other drugs, medicaments and biological substances; Z79.899 Other long term (current) drug therapy; Z91.018 Allergy to other foods; Z68.39 Body mass index [BMI] 39.0-39.9, adult; Z79.82 Long term (current) use of aspirin
CPT/HCPCS: 36415; 36600; 70450-TC; 71045; 71275; 80048; 80053; 80307; 81000-TC; 82150-TC; 82550-TC; 82553-TC; 82803-TC; 83605; 83690-TC; 83880; 84484; 85025; 85379; 85610-TC; 85730-TC; 87040-TC; 87081; 87086; 90656; 93005; 93306; 93970; 94640; 94760; 96365; 96368; 96375; 97116-GP; 97530-GP; 99285; G0482; J0696; J1650; J1940; J1956; J2405; J2930; J3480; J7030; J7613; Q0144; Q9967

== ENCOUNTER 2019-08-04 17:34 | Inpatient (IN) | payer OTHER, MEDICARE ==
[~2019-08-04] VITALS: Ht 167.6 cm; Wt 109.6 kg
[~2019-08-04 17:34] MED LIST changes: -ASPI-1154 PO; +ASPI-1457 PO; +LEVO250T2 PO; -LEVO500T20 PO; -METO-442 PO; -METR500T PO
[2019-08-04 17:45] VITALS: BP_SYST 197
[2019-08-04] MEDS ORDERED: IPRATROPIUM BROM 0.5 MG/2.5 ML VIAL.NEB (ATROVENT) INH ONE (17:45)
[2019-08-04] MEDS ORDERED: ALBUTEROL SULFATE 0.083% 2.5 MG/3 ML VIAL.NEB INH ONE (17:45)
--- NOTE | 2019-08-04 17:45 | NUR ---
MD WHALEN AT BEDSIDE ASSESSING PT.
--- NOTE | 2019-08-04 17:45 | NUR ---
Placed in room 02. Placed on manager cardiac, blood pressure machine and pulse oximeter. To gown for exam. Side rails up. Report given to WOODY Mcgill.
--- NOTE | 2019-08-04 17:50 | NUR ---
PT ON O2 BREATHING TX. PT IS ALERT AND ORIENTED. STATED SHE FEELS FINE. SHE SAID SHE "SLID" AT HOME, BUT DID NOT HIT HER HEAD.
[2019-08-04 18:30] LABS: BASOPHILS # (AUTO) 0.1 K/uL (0.0-0.2); BASOPHILS % (AUTO) 0.4 % (0.0-2.0); EOSINOPHILS # (AUTO) 0.1 K/uL (0.0-0.4); EOSINOPHILS % (AUTO) 0.4 % (0.0-4.0); HEMATOCRIT 39.4 % (36-48); HEMOGLOBIN 13.2 g/dL (12.0-16.0); LYMPHOCYTES # (AUTO) 0.7 K/uL (1.0-5.5); LYMPHOCYTES % (AUTO) 4.9 % (20.5-51.5); MEAN CORPUSCULAR HEMOGLOBIN 31 pg (27-31); MEAN CORPUSCULAR HGB CONC 34 % (32-36); MEAN CORPUSCULAR VOLUME 93 fL (79.0-98.0); MONOCYTES # (AUTO) 1.5 K/uL (0.0-1.0); MONOCYTES % (AUTO) 9.7 % (1.7-9.3); NEUTROPHILS # (AUTO) 13.1 K/uL (1.8-7.7); PLATELET COUNT (AUTO) 256 K/uL (130-430); RED BLOOD CELL COUNT(AUTO) 4.26 MIL/uL (4.2-6.2); RED CELL DISTRIBUTION WIDTH 13.4 % (9.0-15.0); WHITE BLOOD COUNT (AUTO) 15.4 K/uL (4.8-10.8)
--- NOTE | 2019-08-04 18:40 | NUR ---
IV ACCESS TO THE LEFT AC IN ONE ATTEMPT WITH 20G.
[2019-08-04] MEDS ORDERED: VANCOMYCIN HCL 1,000 MG in D5W 250 ML IV ONE (18:45)
[2019-08-04] MEDS ORDERED: NACL 0.9% 2,500 ML IV ONE (18:45)
[2019-08-04 18:50] LABS: NEUTROPHILS % (AUTO) 84.6 % (40.0-70.0)
[2019-08-04 18:52] LABS: ANION GAP 10 (5-15); CALCIUM 8.7 mg/dL (8.4-11.0); CHLORIDE 94 mmol/L (98-107); CREATININE 0.89 mg/dL (0.55-1.30); GLUCOSE 146 mg/dL (70-99); POTASSIUM 4.5 mmol/L (3.5-5.1); SODIUM SERUM 130 mmol/L (136-145); UREA NITROGEN, BLOOD 13 mg/dL (8-21)
[2019-08-04 18:58] LABS: ALANINE AMINOTRANSFERASE 39 U/L (12-78); ALBUMIN 3.2 g/dL (3.4-4.8); ASPARTATE AMINOTRANSFERASE 39 U/L (10-37); TOTAL BILIRUBIN 3.5 mg/dL (0.0-1.0)
[2019-08-04] MEDS ORDERED: ASPIRIN 325 MG TABLET PO ONE (19:00)
--- NOTE | 2019-08-04 19:08 | NUR ---
PT WAS WALKED TO THE TOILET ASSISTED BY RN, AND RN NOTED SHE HAD FULL WEIGHT BEARING, BUT NEEDED THE RN TO HOLD ONTO HER GOWN. RN THEN PLACED A HAT IN THE TOILET FOR THE PT. THE RN THEN ASSISTED OPENING THE GOWN AND PT WAS STANDING HOLD ONTO THE SINK IN FRONT OF HER. RN NOTES THAT THE BATHROOM IS THE SMALL ER BATHROOM AND IS VERY TIGHT. PT WAS STANDING IN FRONT OF THE TOILET HOLDING THE SINK AND JUST ABOUT TO SIT. THE RN THEN GAVE THE PT PRIVACY AND CLOSED THE DOOR. RN STOOD ON OUTSIDE OF DOOR. THE HEARD A THUMP, RN OPEND DOOR AND PT IS ON THE FLOOR, WITH HER BACK AGAINST THE WALL, AND HER FACING THE TOILET. PT STATED SHE FELL FORWARD AND SLID DOWN THE WALL. PT C/O RIGHT FOOT PAIN. WOODY DE GUZMAN AND WOODY LEES PICKED PT UP AND PUT IN W/C. THE BOTH RNS, PICK HER UP AND PUT IN BED.
[2019-08-04] MEDS ORDERED: ACETAMINOPHEN 325 MG TABLET PO ONE (19:30)
--- NOTE | 2019-08-04 19:41 | NUR ---
Patient will be admitted to [facility]. Admitted to Telemetry unit. Will go to room 135. Belongings list completed. Complete and up to date summary report printed. SBAR report to be given at bedside with opportunity for questions.
[2019-08-04] MEDS ORDERED: IPRATROPIUM/ALBUTEROL SULFATE 3 ML AMPUL.NEB (DUONEB) INH PRN (19:45)
[2019-08-04] MEDS ORDERED: ONDANSETRON HCL 4 MG/2 ML VIAL IVP PRN (19:45)
[2019-08-04] MEDS ORDERED: ACETAMINOPHEN 325 MG TABLET PO PRN (19:45)
[2019-08-04] MEDS ORDERED: HYDROcodone/ACETAMIN 5-325 MG TAB (NORCO/ VICODIN) PO PRN (19:45)
[2019-08-04] MEDS ORDERED: albu IH (20:02)
[2019-08-04] MEDS ORDERED: breo IH (20:02)
--- NOTE | 2019-08-04 20:03 | NUR ---
Medication reconciliation completed with information provided by patient. Any prior medication reconciliation on file was reviewed and corrected.
[2019-08-04 20:04] LABS: INR 1.2 (0.8-1.2); PROTHROMBIN TIME 11.6 SECS (9.5-12.5)
[2019-08-04 20:13] LABS: FREE T4 (FREE THYROXINE) 1.3 ng/dl (0.8-1.5); PHOSPHORUS 2.4 mg/dL (2.7-4.5); THYROID STIMULATING HORMONE 2.5 uIu/mL (0.36-3.74)
--- NOTE | 2019-08-04 20:13 | NUR ---
X-ray at bedside.
--- NOTE | 2019-08-04 20:18 | NUR ---
Transfer to Telemetry room 135 via ACLS protocol. Licensed nurse present. IV present no signs or symptoms of infiltration.
--- NOTE | 2019-08-04 20:40 | NUR ---
ADMISSION NOTE Received patient from ER via merlene, received report from nora MCAKY. Patient admitted with diagnosis of pneumonia. Patient oriented to hospital routine, call light, toileting and safety-patient verbalized understanding.
[2019-08-04 20:44] VITALS: BP_SYST 151
[2019-08-04] MEDS ORDERED: VANCOMYCIN HCL 1000 MG/VIAL IV ONE ×2 (20:45→21:05)
[2019-08-04] MEDS ORDERED: FLU VACC TS2019(65UP)/MF59C/PF 45 MCG/0.5 ML SYRINGE I.M. PRN (21:00)
--- NOTE | 2019-08-04 21:00 | NUR ---
INITIAL NOTES PATIENT IS STABLE AND IN BED. FAMILY MEMBERS ARE BY BEDSIDE. NO S/S OF RESPIRATORY DISTRESS NOTED. PATIENT SUCCESSFULLY DEMONSTRATES USAGE OF CALL LIGHT AT THIS TIME. BED IS LOCKED, ALARMED, AND AT THE LOWEST POSITION. FALL, SAFETY, ASPIRATION, AND RESPIRATORY PRECAUTIONS WILL BE IN PLACE THROUGHOUT THE SHIFT.
--- NOTE | 2019-08-04 21:41 | NUR ---
CONSULTATION PAGED/CALLED Reason for Consultation: ELEVATED TROP Person Who was Notified: LAWRENCE Consulting Physician: Casing Operator Specialty: CARDIO Ordering Physician:
[2019-08-04] MEDS: HEPARIN SODIUM,PORCINE 5000 UNITS/ML VIAL SUBCUT SCH (22:08)
[2019-08-04 22:23] VITALS: BP_SYST 151
--- NOTE | 2019-08-04 23:00 | NUR ---
PATIENT IS STABLE AND RESTING IN BED. NO S/S OF RESPIRATORY DISTRESS NOTED. CALL LIGHT IN REACH. BED IS LOCKED, ALARMED, AND AT THE LOWEST POSITION.
[2019-08-05] VITALS (7 sets, daily range): BP systolic 96–184
--- NOTE | 2019-08-05 | NUR ---
COMMUNICATED WITH DR. MONROY ABOUT LACTIC ACIDS. NO NEW ORDERS GIVEN. COMMUNICATED WITH DR. MONROY ABOUT TROP I. ORDERS RECEIVED AND WILL FOLLOW THROUGH.
--- NOTE | 2019-08-05 01:00 | NUR ---
PATIENT IS WATCHING TV. PATIENT IS STABLE. NO S/S OF RESPIRATORY DISTRESS NOTED. CALL LIGHT IN REACH. BED IS LOCKED, ALARMED, AND AT THE LOWEST POSITION.
--- NOTE | 2019-08-05 02:08 | NUR ---
COMMUNICATED WITH DR. MONROY REGARDING PRN PAIN MEDICATION.
[2019-08-05] MEDS ORDERED: ACETAMINOPHEN 325 MG TABLET PO PRN (02:30)
--- NOTE | 2019-08-05 02:52 | NUR ---
PATIENT IS SLEEPING AND STABLE. NO S/S OF RESPIRATORY DISTRESS. CALL LIGHT IN REACH. BED IS LOCKED, ALARMED, AND AT THE LOWEST POSITION.
--- NOTE | 2019-08-05 04:00 | NUR ---
ASSISTED PATIENT WITH THE BED GAR. PATIENT TOLERATED WELL. PATIENT IS STABLE. NO S/S OF RESPIRATORY DISTRESS. PATIENT REPOSITION FOR COMFORT. BED IS LOCKED, ALARMED, AND AT THE LOWEST POSITION.
--- NOTE | 2019-08-05 06:06 | NUR ---
Nutrition Update Lito Scale 14 noted. Pt admitted for Pneumonia Diet: Cardiac BMI: 37.9 kg/m2 RD to follow per nutrition care standards.
--- NOTE | 2019-08-05 06:33 | NUR ---
CLOSING NOTES PATIENT IS STABLE. NO S/S OF RESPIRATORY DISTRESS. CALL LIGHT IN REACH. BED IS LOCKED, ALARMED, AND AT THE LOWEST POSITION. FALL, SAFETY, ASPIRATION, AND RESPIRATORY PRECAUTIONS WAS PLACED THROUGHOUT THE SHIFT. WILL CONTINUE TO MONITOR UNTIL REPORT IS GIVEN TO AM NURSE BY BEDSIDE.
[2019-08-05] MEDS: IPRATROPIUM/ALBUTEROL SULFATE 3 ML AMPUL.NEB (DUONEB) INH SCH ×3 (07:23→19:24)
--- NOTE | 2019-08-05 07:38 | NUR ---
AM, ROUNDS: Patient is oriented x 4. Patient states SOB has lessened compared to prior to hospitalization. On Oxygen 2 li/min via nasal cannula with saturation of 96%. Safety precautions in place, call light within reach.
--- NOTE | 2019-08-05 08:14 | NUR ---
Elevated BP: BP 187/[address] Chaudhary.
[2019-08-05] MEDS: DOCUSATE SODIUM 100 MG CAPSULE PO SCH (08:17)
[2019-08-05] MEDS: HEPARIN SODIUM,PORCINE 5000 UNITS/ML VIAL SUBCUT SCH ×2 (08:18→21:29)
--- NOTE | 2019-08-05 09:36 | NUR ---
XRAY RIGHT ANKLE : Reported result to Dr. Canela, Ortho Consult order with Dr. Hurt received.
[2019-08-05] MEDS ORDERED: LISINOPRIL 20 MG TABLET PO ONE (09:45)
[2019-08-05] MEDS ORDERED: ATORVASTATIN 20 MG TABLET PO ONE (09:45)
[2019-08-05] MEDS ORDERED: guaiFENesin/DEXTROMETHORPHAN 10 ML UDC PO PRN (09:45)
[2019-08-05] MEDS ORDERED: METOPROLOL SUCCINATE 50 MG TAB.SR.24H (TOPROL XL) PO ONE (09:45)
--- NOTE | 2019-08-05 09:46 | NUR ---
CONSULTATION PAGED REASON FOR CONSULTATION:RIGHT DISTAL NONDISPLACED FRACTURE WAS CONSULT CALLED?Y PERSON WHO WAS NOTIFIED:[facility] CONSULTING PHYSICIAN:AUDRA HALL CAPSULE FILLER SPECIALTY:ORTHO CAPSULE FILLER PHONE NUMBER:[phone] REQUESTING PHYSICIAN:BELKYS CORDOVA
[2019-08-05] MEDS: LEVOFLOXACIN 500 MG/D5W 100 ML IV SCH (10:15)
[2019-08-05] MEDS ORDERED: FUROSEMIDE 40 MG TABLET PO ONE (10:30)
[2019-08-05] MEDS ORDERED: FUROSEMIDE 20 MG/2 ML VIAL IVP ONE ×2 (10:45→11:15)
--- NOTE | 2019-08-05 10:58 | NUR ---
CONSULTATION PAGED REASON FOR CONSULTATION:SOB WAS CONSULT CALLED?Y PERSON WHO WAS NOTIFIED:CESIA CONSULTING PHYSICIAN:SUSAN ENCISO ([employer] FREEMAN EXTENDER) RESIDENTIAL WORKER SPECIALTY:PULMONARY RESIDENTIAL WORKER PHONE NUMBER:[phone] REQUESTING PHYSICIAN:BELKYS CORDOVA
[2019-08-05] MEDS ORDERED: methylPREDNISolone SOD SUCC/PF 62.5 MG/ML VIAL IVP ONE (11:00)
[2019-08-05] MEDS ORDERED: FUROSEMIDE 20 MG/2 ML VIAL ONE ×2 (11:00→11:16)
[2019-08-05] MEDS ORDERED: methylPREDNISolone SOD SUCC/PF 62.5 MG/ML VIAL ONE (11:05)
[2019-08-05] MEDS ORDERED: MORPHINE 2 MG/ML INJ. SYRINGE IVP ONE ×2 (11:15)
[2019-08-05] MEDS ORDERED: NITROGLYCERIN 1 INCH (GM) OINT. TP ONE (11:15)
[2019-08-05] MEDS ORDERED: BUDESONIDE 0.5 MG/2 ML AMPUL.NEB INH ONE (11:15)
[2019-08-05] MEDS ORDERED: MORPHINE 2 MG/ML INJ. SYRINGE ONE (11:18)
[2019-08-05] MEDS ORDERED: NITROGLYCERIN 1 INCH (GM) OINT. ONE (11:25)
--- NOTE | 2019-08-05 11:30 | NUR ---
Respiratory distress: Respiratory distress noted at 1045. Dr. Canela, Dr. Chaudhary, Dr. vargas were at bedside. Ordered Medications were given and tests were done. CXR film was seen by Dr. Vargas. Patient appears more calm now. On oxygen 8 li/min via oxymizer. saturation is 96%. Will continue to monitor.
--- NOTE | 2019-08-05 13:50 | NUR ---
Ortho Consult: Seen by Dr. Hurt. No surgery needed. Order for short leg boot faxed to [facility].
--- NOTE | 2019-08-05 16:25 | NUR ---
Singh cath insertion: Inserted hong konger 16 catheter, clear yellow urine output noted in the tubing on first attempt. Secured with securement device. Urine specimen sent to lab for UA and C/S and needed.
[2019-08-05 16:33] LABS: BILIRUBIN,URINE NEGATIVE (NEGATIVE); BLOOD, URINE 2+ (NEGATIVE); CLARITY/URINE CLEAR (CLEAR); COLOR,URINE YELLOW (YELLOW); GLUCOSE,URINE NEGATIVE (NEGATIVE); KETONES,URINE NEGATIVE (NEGATIVE); LEUKOCYTE ESTERASE ,URINE TRACE (NEGATIVE); NITRITE, URINE NEGATIVE (NEGATIVE); PH,URINE 5.5 (5.0-8.0); PROTEIN URINE 1+ (NEGATIVE); UROBILINOGEN,URINE 0.2 (0.2-1.0)
[2019-08-05 16:47] LABS: BACTERIA,URINE MODERATE /HPF (None Seen); RBC,URINE 0-3 /HPF (0-3)
--- NOTE | 2019-08-05 18:21 | NUR ---
end of shift: needs attended. no change in assessment. patient is calm at this time.
--- NOTE | 2019-08-05 19:20 | NUR ---
INITIAL NOTES PATIENT IS STABLE. NO S/S OF RESPIRATORY DISTRESS. PATIENT SUCCESSFULLY DEMONSTRATES USAGE OF CALL LIGHT AT THIS TIME. BED IS LOCKED, ALARMED, AND AT THE LOWEST POSITION. FALL, SAFETY, ASPIRATION, AND RESPIRATORY PRECAUTIONS WILL BE IN PLACE THROUGHOUT THE SHIFT. PLAN OF CARE IS DISCUSSED WITH PATIENT AT THIS TIME.
[2019-08-05] MEDS: BUDESONIDE 0.5 MG/2 ML AMPUL.NEB INH SCH (20:36)
--- NOTE | 2019-08-05 21:20 | NUR ---
PATIENT IS STABLE AND WATCHING TV. NO S/S OF RESPIRATORY DISTRESS NOTED. CALL LIGHT IN REACH. BED IS LOCKED, ALARMED, AND THE LOWEST POSITION.
[2019-08-05] MEDS: LISINOPRIL 20 MG TABLET PO SCH (21:22)
[2019-08-05] MEDS: FUROSEMIDE 40 MG/4 ML VIAL IVP SCH (21:24)
--- NOTE | 2019-08-05 23:20 | NUR ---
PATIENT IS STABLE AND WATCHING TV. NO S/S OF RESPIRATORY DISTRESS NOTED. CALL LIGHT IN REACH. BED IS LOCKED, ALARMED, AND THE LOWEST POSITION.
[2019-08-06] MEDS: IPRATROPIUM/ALBUTEROL SULFATE 3 ML AMPUL.NEB (DUONEB) INH SCH ×4 (00:40→19:41)
--- NOTE | 2019-08-06 01:20 | NUR ---
PATIENT IS STABLE AND SLEEPING. NO S/S OF RESPIRATORY DISTRESS NOTED. CALL LIGHT IN REACH. BED IS LOCKED, ALARMED, AND THE LOWEST POSITION.
[2019-08-06 01:43] VITALS: BP_SYST 148
--- NOTE | 2019-08-06 03:20 | NUR ---
PATIENT IS SLEEPING IN BED AND STABLE. NO S/S OF RESPIRATORY DISTRESS NOTED. CALL LIGHT IN REACH. BED IS LOCKED, ALARMED, AND AT THE LOWEST POSITION.
--- NOTE | 2019-08-06 04:00 | NUR ---
PATIENT IS SLEEPING IN BE. PATIENT IS STABLE. NO S/S OF RESPIRATORY DISTRESS NOTED. CALL LIGHT IN REACH. BED IS LOCKED, ALARMED, AND AT THE LOWEST POSITION.
--- NOTE | 2019-08-06 05:55 | NUR ---
X-RAY RAMP ATTENDANT AT BEDSIDE
--- NOTE | 2019-08-06 06:00 | NUR ---
CLOSING NOTES PATIENT IS WATCHING TV. PATIENT IS STABLE AND SHOWS NO S/S OF RESPIRATORY DISTRESS. CALL LIGHT IN REACH. BED IS LOCKED, ALARMED, AND AT THE LOWEST POSITION. FALL, SAFETY, ASPIRATION, AND RESPIRATORY PRECAUTIONS HAS BEEN IN PLACE THROUGHOUT THE SHIFT. WILL CONTINUE TO MONITOR UNTIL REPORT IS GIVEN TO AM NURSE BY BEDSIDE.
[2019-08-06 07:14] LABS: BASOPHILS % (AUTO) 0.1 % (0.0-2.0); HEMATOCRIT 36.2 % (36-48); HEMOGLOBIN 12.2 g/dL (12.0-16.0); LYMPHOCYTES # (AUTO) 0.6 K/uL (1.0-5.5); LYMPHOCYTES % (AUTO) 5.4 % (20.5-51.5); MEAN CORPUSCULAR HEMOGLOBIN 31 pg (27-31); MEAN CORPUSCULAR HGB CONC 34 % (32-36); MEAN CORPUSCULAR VOLUME 92 fL (79.0-98.0); MONOCYTES # (AUTO) 1.1 K/uL (0.0-1.0); MONOCYTES % (AUTO) 10.5 % (1.7-9.3); NEUTROPHILS # (AUTO) 8.6 K/uL (1.8-7.7); PLATELET COUNT (AUTO) 269 K/uL (130-430); RED BLOOD CELL COUNT(AUTO) 3.94 MIL/uL (4.2-6.2); RED CELL DISTRIBUTION WIDTH 13.4 % (9.0-15.0); WHITE BLOOD COUNT (AUTO) 10.2 K/uL (4.8-10.8)
[2019-08-06 07:40] VITALS: BP_SYST 144
--- NOTE | 2019-08-06 07:40 | NUR ---
Opening note patient resting in bed, a/ox4, periods of forgetfulness, denies pain, assessment complete, neurovascular check complete, IV line is patent and infusing well, Singh Catheter in place draining to gravity, educated the patient manager global communications light system and to call for any assistance and educated on plan of care, she verbalized understanding, bed in lowest position, three side rails up, bed alarm on, bed close to nursing station, fall and aspiration precautions in place.
[2019-08-06] MEDS: BUDESONIDE 0.5 MG/2 ML AMPUL.NEB INH SCH ×2 (07:50→20:00)
[2019-08-06] MEDS: DOCUSATE SODIUM 100 MG CAPSULE PO SCH (08:22)
[2019-08-06] MEDS: LISINOPRIL 20 MG TABLET PO SCH ×2 (08:23→21:01)
[2019-08-06] MEDS: LEVOFLOXACIN 500 MG/D5W 100 ML IV SCH (08:24)
[2019-08-06] MEDS: HEPARIN SODIUM,PORCINE 5000 UNITS/ML VIAL SUBCUT SCH ×2 (08:26→20:55)
[2019-08-06] MEDS: FUROSEMIDE 40 MG/4 ML VIAL IVP SCH ×2 (08:27→21:01)
--- NOTE | 2019-08-06 08:30 | NUR ---
Medication patient resting in bed, awake, denies pain, no signs of distress, educated the patient on medications uses and potential side effects, she verbalized understanding, she took her pills one by one and tolerated well, IV line is patent and infusing well, no other needs at this time, continuing to monitor, bed in lowest position, three side rails up, bed alarm on, bed close to nursing station, call light placed within reach, fall and aspiration precautions in place.
[2019-08-06] MEDS ORDERED: FUROSEMIDE 40 MG TABLET PO SCH (09:00)
[2019-08-06] MEDS ORDERED: ASPIRIN 81 MG TAB.CHEW PO SCH (09:00)
[2019-08-06] MEDS ORDERED: BREO IH SCH (09:00)
[2019-08-06] MEDS ORDERED: PREDNISONE 20 MG TABLET PO SCH (09:00)
[2019-08-06] MEDS ORDERED: ATORVASTATIN 20 MG TABLET PO SCH (09:00)
[2019-08-06] MEDS ORDERED: METOPROLOL SUCCINATE 50 MG TAB.SR.24H (TOPROL XL) PO SCH (09:00)
[2019-08-06 09:51] LABS: ALANINE AMINOTRANSFERASE 41 U/L (12-78); ALBUMIN 2.8 g/dL (3.4-4.8); ANION GAP 9 (5-15); ASPARTATE AMINOTRANSFERASE 30 U/L (10-37); CALCIUM 8.2 mg/dL (8.4-11.0); CHLORIDE 94 mmol/L (98-107); CREATININE 1.04 mg/dL (0.55-1.30); GLUCOSE 139 mg/dL (70-99); POTASSIUM 3.4 mmol/L (3.5-5.1); SODIUM SERUM 130 mmol/L (136-145); TOTAL BILIRUBIN 1.2 mg/dL (0.0-1.0); UREA NITROGEN, BLOOD 21 mg/dL (8-21)
--- NOTE | 2019-08-06 10:05 | NUR ---
Dr. Mcnally rounds assessed patient at bedside, discussed plan of care, patient verbalized understanding.
[2019-08-06] MEDS ORDERED: AZITHROMYCIN 250 MG TABLET PO SCH (10:15)
[2019-08-06] MEDS ORDERED: cefTRIAXone 1 GM in D5W 50 ML IV SCH (11:00)
--- NOTE | 2019-08-06 11:10 | NUR ---
RN rounds/medication patient resting in bed, awake, visitor at bedside, educated patient on new medication uses and potential side effects, she verbalized understanding, IV line is patent and infusing well, no other needs at this time, continuing to monitor, bed in lowest position, three side rails up, bed alarm on, bed close to nursing station, fall and aspiration precautions in place, call light placed within reach.
[2019-08-06 12:00] VITALS: BP_SYST 138
--- NOTE | 2019-08-06 12:36 | NUR ---
RN rounds patient resting in bed, awake, denies pain, denies shortness of breath, no signs of distress, continuing to monitor, bed in lowest position, three side rails up, bed alarm on, bed close to nursing station, call light within reach, fall and aspiration precautions in place.
--- NOTE | 2019-08-06 13:40 | NUR ---
Physical Therapy/Rounds Jonatan, asking to see the patient, informed Jonatan that leg brace has not arrived yet, but he can work with the patient to being the evaluation. Patient denies pain prior to physical therapy, continuing to monitor.
--- NOTE | 2019-08-06 13:40 | NUR ---
Trista at [facility] spoke with Trista, she requested a Face Sheet and patient's shoe size. Faxed over the information at this time. Fax number [phone].
--- NOTE | 2019-08-06 15:09 | NUR ---
RN rounds patient resting in bed, eyes closed, breathing is even and unlabored, no signs of distress, on 3L via nasal cannula at this time, continuing to monitor, bed in lowest position, three side rails up, bed alarm on, bed close to nursing station, fall and aspiration precautions in place, call light is within patient reach.
[2019-08-06 15:55] VITALS: BP_SYST 121
--- NOTE | 2019-08-06 16:45 | NUR ---
[facility] brace delivery at this time, patient being fitted for it.
[2019-08-06] MEDS ORDERED: POTASSIUM CHLORIDE 20 MEQ TAB.PRT.SR PO ONE (17:45)
--- NOTE | 2019-08-06 18:00 | NUR ---
RN rounds/medication patient resting in bed, awake ,denies pain, educated on potassium replacement uses and potential side effects, she verbalized understanding and tolerated well, continuing to monitor, bed in lowest position, three side rails up, bed alarm on, bed close to nursing station, call light is within reach, fall and aspiration precautions in place.
--- NOTE | 2019-08-06 18:35 | NUR ---
Closing note patient resting in bed, eating dinner, her family is at bedside, all needs met, will endorse report to NOC shift nurse, bed in lowest position, three side rails up, bed alarm on, bed close to nursing station, fall and aspiration precautions in place, call light is within her reach.
--- NOTE | 2019-08-06 20:00 | NUR ---
received pt in bed v/s and assessment done same stable ,iv h/l david d/c,pm care given no distress noted.
--- NOTE | 2019-08-06 20:30 | NUR ---
pt refused to have her david out want to wait for in the morning
--- NOTE | 2019-08-07 | NUR ---
pt repositioned made comfortable
[2019-08-07 01:31] VITALS: BP_SYST 158
[2019-08-07 04:00] VITALS: BP_SYST 154
--- NOTE | 2019-08-07 04:09 | NUR ---
am care given repositioned ,am care no distress noted.
--- NOTE | 2019-08-07 05:51 | NUR ---
david d/c isa care given made comfortable
[2019-08-07] MEDS: IPRATROPIUM/ALBUTEROL SULFATE 3 ML AMPUL.NEB (DUONEB) INH SCH ×3 (06:00→13:40)
--- NOTE | 2019-08-07 08:00 | NUR ---
ASSUMPTION OF CARE: RECEIVED PT A/A/OX4, DX: INADEQUATE VENTILATION, R/T PNEUMONIA, BREATH SOUNDS ARE CLEAR, BREATHING UNLABORED, NO S/S OF DISTRESS, IV SITE INTACT, PATENT, NO REDNESS OR SWELLING, ORIENTED TO UNIT, AND CALL LIGHT, WILL CONT' TO MONITOR AND ASSESS.
[2019-08-07] MEDS: BUDESONIDE 0.5 MG/2 ML AMPUL.NEB INH SCH (09:00)
--- NOTE | 2019-08-07 09:00 | NUR ---
[facility] OPERATIONS INTELLIGENCE CHIEF: MORNING MEDS GIVEN, PER ORDERED BY Dalila, TOLERATED WELL, WILL CONT' WITH POC.
[2019-08-07 11:07] LABS: ANION GAP 7 (5-15); CALCIUM 8.4 mg/dL (8.4-11.0); CHLORIDE 97 mmol/L (98-107); CREATININE 0.98 mg/dL (0.55-1.30); GLUCOSE 119 mg/dL (70-99); POTASSIUM 3.7 mmol/L (3.5-5.1); SODIUM SERUM 132 mmol/L (136-145); UREA NITROGEN, BLOOD 26 mg/dL (8-21)
[2019-08-07 12:00] VITALS: BP_SYST 154
[2019-08-07] MEDS ORDERED: POTASSIUM CHLORIDE 20 MEQ TAB.PRT.SR PO ONE (12:15)
[2019-08-07] MEDS ORDERED: FUROSEMIDE 40 MG TABLET PO ONE (12:15)
--- NOTE | 2019-08-07 12:25 | NUR ---
Discharge Planning Transfer [facility] SN[facility] [address] [facility] [address] p [phone] f [phone]. Room [address] [place] [address] ambulance, , 14:00 Purnima RN notified. Chart will be placed in nurses' station. [place] given patient information when they came to visit earlier.
[2019-08-07 12:57] VITALS: BP_SYST 154
--- NOTE | 2019-08-07 13:00 | NUR ---
DISCHARGE: PT HAS ORDER FOR DISCHARGE TO [facility], CALL AND GAVE REPORT TO NURSE MERCEDES ZHAO, PT IS AWARE, DAUGHTER AND AT BEDSIDE, WILL CONT' TO MONITOR AND ASSESS.
[2019-08-07 13:23] VITALS: BP_SYST 159
[2019-08-07] MEDS ORDERED: FUROSEMIDE 40 MG TABLET PO SCH (21:00)
[2019-08-08] MEDS ORDERED: FUROSEMIDE 40 MG TABLET PO SCH (09:00)
== END 2019-08-07 14:20 | DRG 871 ==
LOC: SED 17:34 → STU 19:37
PROVIDERS: ADMIT Family Medicine; ATTEND Family Medicine
DX: A41.9 Sepsis, unspecified organism (principal); I50.43 Acute on chronic combined systolic (congestive) and diastolic (congestive) heart failure; J18.9 Pneumonia, unspecified organism; I21.A1 Myocardial infarction type 2; J96.01 Acute respiratory failure with hypoxia; J44.0 Chronic obstructive pulmonary disease with (acute) lower respiratory infection; E87.1 Hypo-osmolality and hyponatremia; J44.1 Chronic obstructive pulmonary disease with (acute) exacerbation; N39.0 Urinary tract infection, site not specified; S82.831A Other fracture of upper and lower end of right fibula, initial encounter for closed fracture; E78.5 Hyperlipidemia, unspecified; I11.0 Hypertensive heart disease with heart failure; I16.0 Hypertensive urgency; Z66 Do not resuscitate; W01.0XXA Fall on same level from slipping, tripping and stumbling without subsequent striking against object, initial encounter; Y99.8 Other external cause status; Z86.73 Personal history of transient ischemic attack (TIA), and cerebral infarction without residual deficits; Z87.891 Personal history of nicotine dependence; Z88.0 Allergy status to penicillin; Y93.89 Activity, other specified; Y92.89 Other specified places as the place of occurrence of the external cause; Z79.899 Other long term (current) drug therapy; E66.01 Morbid (severe) obesity due to excess calories; Z68.39 Body mass index [BMI] 39.0-39.9, adult
CPT/HCPCS: 36415; 36600; 70450-TC; 71045; 80048; 80053; 80061; 81000-TC; 82150-TC; 82803-TC; 83036; 83605; 83690-TC; 83735-TC; 83880; 84100-TC; 84439; 84443-TC; 84484; 85025; 85610-TC; 85730-TC; 87040-TC; 87086; 93005; 94640; 94760; 96365; 97110-GP; 97112-GP; 97116-GP; 99285; G0378; J0696; J1644; J1940; J1956; J2270; J2405; J2930; J3370; J7060; J7512; J7613; J7620; J7626